=== PATIENT | female | born 1970 | race Caucasian/White ===

== ENCOUNTER → 2016-09-20 | Outpatient (CLI) | payer OTHER ==
--- NOTE | 2016-09-20 14:37 | MM ---
Reason for exam: screening (asymptomatic). Last mammogram was performed 1 year and 2 months ago. History: Patient is nulliparous. Taking hormonal contraceptives beginning at age 15. Physical Findings: A clinical breast exam by your physician is recommended on an annual basis and results should be correlated with mammographic findings. MG Screening Mammo w CAD Bilateral CC and MLO view(s) were taken. Prior study comparison: July 16, 2015, bilateral MG screening mammo w CAD. March 05, 2014, bilateral MG screening mammo w CAD. There are scattered fibroglandular densities. Asymmetric breast tissue in the right breast. This finding is changed when compared with previous exams. ASSESSMENT: Incomplete: need additional imaging evaluation, BI-RAD 0 RECOMMENDATION: Special view mammogram of the right breast. If lesion persists on supplemental views, image directed ultrasound is recommended. [facility] will attempt to contact patient to return for supplemental views and ultrasound if indicated.
== END | disposition home or self-care (01) ==
LOC: RADMAMWWP 07:26
PROVIDERS: ATTEND Family Medicine
DX: Z12.31 Encounter for screening mammogram for malignant neoplasm of breast (principal)

== ENCOUNTER → 2016-10-05 | Outpatient (CLI) | payer OTHER ==
--- NOTE | 2016-10-05 10:41 | USB ---
EXAMINATION TYPE: US breast workup limited RT DATE OF EXAM: 10/05/2016 COMPARISON: No prior ultrasound. Mammograms dated 10/05/2016 and 09/20/2016. CLINICAL HISTORY: R92.8 Abn. Mammo. Targeted right breast ultrasound was performed from the 10:00 to 1:00 positions to evaluate a mammogr aphic focal asymmetry. At the 1:00 position, 9 cm from the nipple near the palpable abnormality there is a hypoechoic 0.4 x 0.3 x 0.6 cm mass with angular margins and no discrete increased through transmission or reproducible shadowing. This is not sonographically compatible with a simple cyst and biopsy is recommended. A BB was placed over this abnormality for questionable correlation with the mammographic focal asymmetry for which the patient was originally recalled. The BB marker likely corresponds to the mammographic f ocal asymmetry. Therefore biopsy attempt under ultrasound is recommended and correlation with postcli p mammogram. If the biopsy marker does not correspond to the mammographic mass recommendations will b e given after pathology of the biopsied mass returns. If this mass is malignant, stereotactic guided biopsy would be recommended of these focal asymmetry. If this mass is benign the focal asymmetry coul d be followed up with 6 month diagnostic mammogram and considered probably benign. Incidentally noted avascular lymph node containing fat is seen at the 1:00 position, 10 cm the nipple measuring 0.4 x 0.2 x 0.3 cm. At 1:00, 8 cm from the nipple there is a hypoechoic 0.4 x 0.2 x 0.3 cm mass with probable increased t hrough transmission, however this is small and deep and likely corresponds to a cyst. This is probabl y benign and six-month follow-up ultrasound is recommended. At the 1:00 position, 4 cm nipple there is a nearly anechoic avascular mass with minimal increased th rough transmission when the focal zone is decreased, this likely corresponds to a deep cyst measuring 0.5 x 0.7 x 0.3 cm. Six-month follow-up ultrasound is recommended to ensure stability. IMPRESSION: 1. Suspicious finding. 6 mm hypoechoic mass at the 1:00 position of the right breast for which attemp t at ultrasound biopsy is recommended. The environmental engineering technician notes the possibility in difficulty reproducing this finding and therefore if ultrasound-guided biopsy is unsuccessful stereotactic guide d biopsy of the focal asymmetry would be recommended with subsequent targeted ultrasound in attempt t o delineate a clip within the sonographic mass. If successful ultrasound-guided biopsy is performed c orrelation with the focal asymmetry is recommended on the post ultrasound-guided core biopsy mammogra m for clip placement. If the 2 findings do not correlate management of the focal asymmetry will be gi kelly based on biopsy results of the 6 mm hypoechoic mass. 2. Probably benign findings at the 1:00 position within the right breast for which six-month follow-u p ultrasound is recommended.
--- NOTE | 2016-10-10 08:35 | MM ---
Reason for exam: additional evaluation requested from abnormal screening. Last mammogram was performed less than 1 month ago. History: Patient is nulliparous. Taking hormonal contraceptives beginning at age 15. Physical Findings: Nurse Summary: 1cm nodule in the right breast at 12:30 (nurse dw). MG Work Up Mamm w CAD RT LM, spot compression MLO, and spot compression CC view(s) were taken of the right breast. Prior study comparison: September 20, 2016, bilateral MG screening mammo w CAD. July 16, 2015, bilateral MG screening mammo w CAD. There are scattered fibroglandular densities. There is an 8mm mass that persists on spot compression views and true lateral view in the central upper right breast at a middle depth near the palpable BB marker. Ultrasound was subsequently performed. These results were verbally communicated with the patient and result sheet given to the patient on 10/05/16. ASSESSMENT: Incomplete: need additional imaging evaluation, BI-RAD 0 RECOMMENDATION: Ultrasound of the right breast.
== END | disposition home or self-care (01) ==
LOC: RADMAMWWP 07:03
PROVIDERS: ATTEND Family Medicine
DX: R92.8 Other abnormal and inconclusive findings on diagnostic imaging of breast (principal)
CPT/HCPCS: 76642; G0206

== ENCOUNTER → 2016-10-19 | Day surgery (SDC) | payer OTHER ==
[2016-10-19 08:29] VITALS: TEMP 98.3; BMI 34.7
--- NOTE | 2016-10-19 10:18 | USB ---
EXAMINATION TYPE: US biopsy breast VAD RT, Postbiopsy diagnostic mammo RT wo CAD DATE OF EXAM: 10/19/2016 CLINICAL HISTORY: 45-year-old female R92.8 Abnormal Mammogram. TECHNIQUE: Ultrasound guided core biopsy of the 1:00 right breast which is in the region of a nurse detected palpable abnormality. COMPARISON: 10/05/2016 and 09/20/2016 FINDINGS: The 1:00 area in question was duplicated with difficulty. There is a dense patch of fibroglandular tissue just adjacent. The procedure of ultrasound guided core biopsy was explained to the patient. Benefits, alternatives, and risks were discussed. An informed consent was then obtained. The patient was placed in supine positioning for imaging and for the procedure. The overlying skin was prepped and draped in usual sterile fashion. Lidocaine was used as anesthetic into the skin and subcutaneous tissue up to area of concern in the right breast. Under ultrasound guidance, a 13-gauge vacuum-assisted mammotome Elite biopsy gun device was used to obtain 7 core samples. Following this, a ribbon clip was left at the site of biopsy. No residual lesion could be identified after the multiple specimens. The patient tolerated the procedure well without any immediate complication. The patient was kept in the radiology department for short stay after the procedure and then discharged home in stable condition. Postbiopsy mammogram shows the microclip at the 1:00 position at a middle depth. As compared to 10/05/2016, this is at the palpable marker. However, there is an underlying focal asymmetry located in the central upper inner quadrant which was initially questioned and should be reassessed in 6 months. IMPRESSION: Successful, uncomplicated ultrasound guided core biopsy of area of concern in the 1:00 right breast which is located in the vicinity of the nurse detected palpable abnormality. Low suspicion at time of biopsy. Full pathology results to follow. RECOMMENDATIONS: 1. Follow-up pathology results. 2. Six-month follow-up diagnostic right breast mammogram for reassessment of the central upper inner quadrant focal asymmetry. If any suspicious changes are noted at that time, stereotactic core needle biopsy should be considered. Pathology Results: Benign BREAST, RIGHT, CORE BIOPSY: FIBROCYSTIC CHANGES INCLUDING FIBROSIS, CYSTS AND COLUMNAR CELL HYPERPLASIA. Recommendation Follow up mammogram of the right breast in 6 months. ADDIE
[2016-10-19 10:27] VITALS: BP 134/79; PULSE 75; RESP 15
== END ==
LOC: RADUSWWP 07:58
PROVIDERS: ATTEND Surgery
DX: N60.11 Diffuse cystic mastopathy of right breast (principal); N62 Hypertrophy of breast
CPT/HCPCS: 88305

== ENCOUNTER → 2017-05-23 | Outpatient (CLI) | payer BC ==
--- NOTE | 2017-05-23 14:45 | MM ---
Reason for exam: follow-up at short interval from prior study. Last mammogram was performed 7 months ago. History: Patient is nulliparous. Benign US biopsy breast VAD RT of the right breast, October 19, 2016. Took hormonal contraceptives beginning at age 15. Physical Findings: Nurse did not find any significant physical abnormalities on exam. MG 3D Diag Mammo W/Cad RT CC and MLO view(s) were taken of the right breast. Prior study comparison: October 19, 2016, right breast MG diagnostic mammo RT wo CAD. October 05, 2016, right breast MG work up mamm w CAD RT. The breast tissue is heterogeneously dense. This may lower the sensitivity of mammography. The previously seen focal asymmetry is stable from 10/19/16 and from 09/20/16. A 6 month follow up diagnostic exam recommended. These results were verbally communicated with the patient and result sheet given to the patient on 05/23/17. ASSESSMENT: Probably benign, BI-RAD 3 RECOMMENDATION: Follow-up diagnostic mammogram of both breasts in 6 months. Back on schedule for October 2017.
--- NOTE | 2017-05-23 14:47 | USB ---
Reason for exam: follow-up at short interval from prior study. History: Patient is nulliparous. Benign US biopsy breast VAD RT of the right breast, October 19, 2016. Took hormonal contraceptives beginning at age 15. US Breast RT Right breast ultrasound includes all four quadrants, the retroareolar region and axilla. Finding demonstrates a 0.4 x 0.4 x 0.2cm oval, vascular lesion at 1 o'clock, unchanged from prior. No sonographic finding at palpable at 12 o'clock. These results were verbally communicated with the patient and result sheet given to the patient on 05/23/17. ASSESSMENT: Probably benign, BI-RAD 3 RECOMMENDATION: Follow-up diagnostic mammogram of both breasts in 6 months. Back on schedule for October 2017. Ultrasound of the right breast in 6 months.
== END | disposition home or self-care (01) ==
LOC: RADMAMWWP 09:31
PROVIDERS: ATTEND Surgery
DX: R92.8 Other abnormal and inconclusive findings on diagnostic imaging of breast (principal)
CPT/HCPCS: 77065; 76641; G0279

== ENCOUNTER → 2017-06-23 | Outpatient (CLI) | payer BC ==
--- NOTE | 2017-06-23 15:15 | US ---
EXAMINATION TYPE: US thyroid st tissue head/neck DATE OF EXAM: 06/23/2017 COMPARISON: NONE CLINICAL HISTORY: R22.1 Localized swelling/mass/lump neck. Intermittent left neck swelling and tender ness x 1 month Left neck area of swelling: multiple small hypoechoic structures with largest measuring 1.2 x 0.8 x 1 .5cm, probable lymph nodes Right neck for comparison: appears wnl. Area of Clinical concern left neck shows oval well-circumscribed lesions measuring subcentimeter on s hort axis with retained central hyperechoic area or fatty hilum. Findings are consistent with promine nt but benign-appearing lymph nodes. IMPRESSION: As above
== END ==
LOC: RADUSWWP 14:43
PROVIDERS: ATTEND Family Medicine
DX: R22.1 Localized swelling, mass and lump, neck (principal)
CPT/HCPCS: 76536

== ENCOUNTER → 2017-10-31 | Outpatient (CLI) | payer BC ==
--- NOTE | 2017-11-01 11:32 | MM ---
Reason for exam: additional evaluation requested from prior study. Last mammogram was performed 5 months ago. History: Patient is nulliparous. Benign US biopsy breast VAD RT of the right breast, October 19, 2016. Took hormonal contraceptives beginning at age 15. Physical Findings: Nurse did not find any significant physical abnormalities on exam. MG 3D Diag Mammo W/Cad BECKA Bilateral CC and MLO view(s) were taken. Prior study comparison: May 23, 2017, right breast MG 3d diag mammo w/cad RT. October 19, 2016, right breast MG diagnostic mammo RT wo CAD. There are scattered fibroglandular densities. Previous mammotome biopsy in the right breast. Stable focal asymmetry central upper outer quadrant right breast for 1 year. These results were verbally communicated with the patient and result sheet given to the patient on 10/31/17. ASSESSMENT: Incomplete: need additional imaging evaluation, BI-RAD 0 RECOMMENDATION: Ultrasound of the right breast.
--- NOTE | 2017-11-01 11:35 | USB ---
Reason for exam: follow-up at short interval from prior study. History: Patient is nulliparous. Benign US biopsy breast VAD RT of the right breast, October 19, 2016. Took hormonal contraceptives beginning at age 15. US Breast RT Right complete breast ultrasound includes all four quadrants, the retroareolar region and axilla. Finding demonstrates a 0.3 x 0.2 x 0.2cm lesion too small to characterize at 12 o'clock, a 0.6 x 0.2 x 0.4cm mixed lesion at 1 o'clock, possibly cyst clusters, a 0.7 x 0.3 x 0.5cm mixed lesion at 6 o'clock, possibly cyst clusters and lymph nodes at axilla. As mammographic asymmetry is unchanged for 1 year an additional 1 year follow up recommended. These results were verbally communicated with the patient and result sheet given to the patient on 10/31/17. ASSESSMENT: Probably benign, BI-RAD 3 RECOMMENDATION: Follow-up diagnostic mammogram of both breasts in 1 year (total 2 year followup right breast). Ultrasound of the right breast in 1 year. ADDIE
== END | disposition home or self-care (01) ==
LOC: RADMAMWWP 08:52
PROVIDERS: ATTEND Surgery
DX: R92.8 Other abnormal and inconclusive findings on diagnostic imaging of breast (principal)
CPT/HCPCS: 77062; 77066

== ENCOUNTER → 2018-06-19 | Outpatient (CLI) | payer BC ==
--- NOTE | 2018-06-19 10:20 | CT ---
EXAMINATION TYPE: CT soft tissue neck w con DATE OF EXAM: 06/19/2018 HISTORY: Left mandibular swelling (sub mandibular) COMPARISON: NONE CT DLP: 582.5 mGycm. Automated Exposure Control for Dose Reduction was Utilized. TECHNIQUE: CT scan of the neck is performed with IV Contrast, patient injected with 100 mL of Isovue 300, axial images are obtained, coronal and sagittal reformatted images are reviewed. FINDINGS: Airway: Airway is maintained. Valleculae and piriform sinuses are unremarkable. True and false focal cords are also unremarkable. Fossa of [place] are overall symmetric. Parotid/submandibular glands: No gross abnormality seen within the parotid or submandibular glands. Submandibular lymph nodes on the left are larger than on the right although within normal limits александр uring up to 7 mm in short axis. No surrounding inflammatory changes seen of the parotid or submandibu lar glands. No ductal dilatation is noted. However there is a calculus on the left measuring 2 mm at the submandibular caruncle, the distal aspect of the submandibular duct (Ramirez's duct), on the floo r the mouth. Carotid/Vascular Structures: Incidentally noted bovine aortic arch. The common carotid arteries, visu alized internal carotid arteries, and vertebral arteries are patent without hemodynamically significa nt stenosis. Left vertebral artery is slightly dominant. Osseous Structures: Osseous structures are intact with punctate scattered sclerotic foci, likely smal l bone islands. Minimal degenerative changes of the cervical spine are seen. Straightening of usual c ervical lordosis likely relates to patient positioning. Other: Lung apices are well aerated. IMPRESSION: Left [place]'s duct sialolithiasis with 2 mm calculus at the submandibular caruncle. No proximal dila tation of the duct is seen on CT. Slightly asymmetric left submandibular adenopathy likely relates to the patient's left sided submandibular swelling along the length of the mandible. However these are not pathologically enlarged.
== END | disposition home or self-care (01) ==
LOC: RADCTMAIN 09:22
PROVIDERS: ATTEND Otolaryngology
DX: K11.5 Sialolithiasis (principal); R59.0 Localized enlarged lymph nodes
CPT/HCPCS: 70491; Q9967

== ENCOUNTER → 2018-11-27 | Outpatient (CLI) | payer BC ==
--- NOTE | 2018-11-27 12:30 | EST ---
EXERCISE STRESS DATE OF SERVICE: 11/27/2018 AGE: 47 SEX: Female HT: 64 WT: 213 PROTOCOL: Rai STAGE: III DURATION OF EXERCISE: 7 minutes 30 seconds HEART RATE REST: 102 BLOOD PRESSURE REST: 124/97 MAXIMUM HEART RATE ACHIEVED: 157 MAXIMUM BLOOD PRESSURE: 156/77 85% MPHR: 146 100% MPHR: 172 METS: 9.1 INDICATIONS: Chest pain. CLINICAL INFORMATION: Baseline rhythm is sinus mechanism, rate of 102, normal axis and intervals, poor R progression. Baseline blood pressure 124/97 mmHg. Test was terminated secondary to fatigue. Electrocardiograph monitoring revealed no evidence of diagnostic ischemic ST deviation. CONCLUSION: 1. Average exercise tolerance with normal electrocardiograph response to exercise. 2. Normal stress electrocardiogram with no evidence of arrhythmia. MMODL / IJN: [id number] /
== END ==
LOC: RADNMMAIN 10:41
PROVIDERS: ATTEND Family Medicine
DX: R07.89 Other chest pain (principal)
CPT/HCPCS: 93017

== ENCOUNTER → 2018-11-28 | Outpatient (CLI) | payer BC ==
--- NOTE | 2018-11-28 09:48 | MM ---
Reason for exam: additional evaluation requested from prior study. Last mammogram was performed 1 year and 1 month ago. History: Patient is nulliparous. Benign US biopsy breast VAD RT of the right breast, October 19, 2016. Took hormonal contraceptives beginning at age 15. Physical Findings: Nurse Summary: 0.5 x 1cm nodule in the right breast at 1 o'clock (nurse ts). MG 3D Diag Mammo W/Cad BECKA Bilateral CC and MLO view(s) were taken. Prior study comparison: October 31, 2017, bilateral MG 3d diag mammo w/cad BECKA. May 23, 2017, right breast MG 3d diag mammo w/cad RT. October 19, 2016, right breast MG diagnostic mammo RT wo CAD. September 20, 2016, bilateral MG screening mammo w CAD. July 16, 2015, bilateral MG screening mammo w CAD. There are scattered fibroglandular densities. No significant new findings when compared with previous films. These results were verbally communicated with the patient and result sheet given to the patient on 11/28/18. ASSESSMENT: Benign, BI-RAD 2 RECOMMENDATION: Routine screening mammogram of both breasts in 1 year.
--- NOTE | 2018-11-28 09:49 | USB ---
Reason for exam: additional evaluation requested from prior study. History: Patient is nulliparous. Benign US biopsy breast VAD RT of the right breast, October 19, 2016. Took hormonal contraceptives beginning at age 15. US Breast RT Right complete breast ultrasound includes all four quadrants, the retroareolar region and axilla. Finding demonstrates a 3 x 2 x 4mm oval, cystic lesion at 1 o'clock and a 3 x 3 x 3mm oval questionable lymph node at 11 o'clock. These results were verbally communicated with the patient and result sheet given to the patient on 11/28/18. ASSESSMENT: Probably benign, BI-RAD 3 RECOMMENDATION: Ultrasound of the right breast in 6 months.
== END ==
LOC: RADMAMWWP 07:37
PROVIDERS: ATTEND Surgery
DX: R92.8 Other abnormal and inconclusive findings on diagnostic imaging of breast (principal)
CPT/HCPCS: 77062; 77066

== ENCOUNTER → 2019-12-18 | Outpatient (CLI) | payer BC, MEDICAID ==
--- NOTE | 2019-12-19 11:02 | MM ---
Reason for exam: screening (asymptomatic). Last mammogram was performed 1 year and 1 month ago. History: Patient is postmenopausal and is nulliparous. Benign US biopsy breast VAD RT of the right breast, October 19, 2016. Took hormonal contraceptives beginning at age 15. Physical Findings: A clinical breast exam by your physician is recommended on an annual basis and results should be correlated with mammographic findings. MG 3D Screening Mammo W/Cad Bilateral CC and MLO view(s) were taken. Prior study comparison: November 28, 2018, bilateral MG 3d diag mammo w/cad BECKA. October 31, 2017, bilateral MG 3d diag mammo w/cad BECKA. There are scattered fibroglandular densities. Previous mammotome biopsy in the right breast. There is chronic nodularity bilaterally. No significant changes when compared with prior studies. ASSESSMENT: Benign, BI-RAD 2 RECOMMENDATION: Routine screening mammogram of both breasts in 1 year.
== END | disposition home or self-care (01) ==
LOC: RADMAMWWP 08:10
PROVIDERS: ATTEND Surgery
DX: Z12.31 Encounter for screening mammogram for malignant neoplasm of breast (principal)
CPT/HCPCS: 77063; 77067

== ENCOUNTER → 2019-12-19 | Outpatient (CLI) | payer BC, MEDICAID ==
--- NOTE | 2019-12-19 11:04 | USB ---
Reason for exam: follow-up at short interval from prior study. History: Patient is postmenopausal and is nulliparous. Benign US biopsy breast VAD RT of the right breast, October 19, 2016. Took hormonal contraceptives beginning at age 15. Physical Findings: Nurse did not find any significant physical abnormalities on exam. US Breast Limited RT Technologist: Paz Phillip Right limited breast ultrasound including focal area of concern, retroareolar and axilla demonstrates a 0.7 x 0.5 x 0.2cm oval, possible lymph node at 11 o'clock, stable from 11/2018. These results were verbally communicated with the patient and result sheet given to the patient on 12/19/19. ASSESSMENT: Benign, BI-RAD 2 RECOMMENDATION: Return to routine screening mammogram schedule for both breasts.
== END | disposition home or self-care (01) ==
LOC: RADUSWWP 07:44
PROVIDERS: ATTEND Surgery
DX: N60.09 Solitary cyst of unspecified breast (principal)

== ENCOUNTER → 2020-06-03 | Outpatient (CLI) | payer MEDICAID ==
--- NOTE | 2020-06-03 08:44 | CT ---
EXAMINATION TYPE: CT soft tissue neck w con DATE OF EXAM: 06/03/2020 COMPARISON: None HISTORY: Swollen lymph nopde on left side intermittently for 1 year. No marker placed today....landry t states, "No lumps to feel at this time." CONTRAST: CT scan of the neck is performed with IV Contrast, patient injected with 100 mL of Isovue 300. Contrast enhanced CT of the neck was performed from the skull base through the lung apices. AIRWAY: The supraglottic, glottic, and subglottic portions of the airway appear patent and free of mass. SALIVARY GLANDS: The submandibular and parotid glands are free of mass or inflammatory process. THYROID GLAND: No nodules or masses seen. LYMPH NODES: No adenopathy seen greater than 1cm. LUNG APICES: No nodule or mass is seen. OTHER: Vascular structures are patent. No significant degenerative change of the cervical spine. N o abscess seen. IMPRESSION: 1. No distinct abnormality to account for the patient's symptoms.
== END | disposition home or self-care (01) ==
LOC: RADCTMAIN 07:59
PROVIDERS: ATTEND Family Medicine
DX: R59.0 Localized enlarged lymph nodes (principal)
CPT/HCPCS: 70491; Q9967

== ENCOUNTER → 2021-02-01 | Outpatient (CLI) | payer MEDICAID ==
--- NOTE | 2021-02-02 23:27 | BD ---
EXAMINATION TYPE: Axial Bone Density DATE OF EXAM: 02/01/2021 COMPARISON: NONE CLINICAL HISTORY: Height: 5 FT 3 1/2 IN Weight: 226 FRAX RISK QUESTIONS: Alcohol (3 or more units per day): NO Family History (Parent hip fracture): NO Glucocorticoids (More than 3mos): NO (Ex: prednisone, prednisolone, methylprednisolone, dexamethasone, and hydrocortisone). History of Fracture in Adulthood: YES Secondary Osteoporosis: 1. Type 1 Diabetes: NO 2. Hyperthyroidism: NO 3. Menopause before 45: NO 4. Malnutrition: NO 5. Chronic liver disease: NO Rheumatoid Arthritis: NO Current Tobacco Use: NO RISK FACTORS HISTORY OF: Surgery to Spine/Hip(right/left)/Wrist (right/left): NO Family History of Osteoporosis: NO Active: SOMEWHAT Diet low in dairy products/other sources of calcium: NO Postmenopausal woman: YES Take estrogen and/or progesterone medications: NO Lost more than 2 inches in height since high school: NO Frequent falls: NO Poor Health: GOOD Hyperparathyroidism: NO Adrenal Insufficiency: NO MEDICATIONS: Additional Medications: BLOOD PRESSURE MEDS ,VIT D Additional History: EXAM MEASUREMENTS: Bone mineral densitometry was performed using the [employer] System. Bone mineral density as measured about the Lumbar spine is: ----- L1-L4(G/cm2): 1.154 T Score Values are as follows: ----- L2: -0.5 ----- L3: -0.6 ----- L4: 0.6 ----- L1-L4: -0.2 BASELINE Bone mineral density about the R hip (g/cm2): 0.814 Bone mineral density about the L hip (g/cm2): 0.851 T Score values are as follows: -----R Neck: -1.6 -----L Neck: -1.3 -----R Total: -1.0 -----L Total: -0.9 BASELINE IMPRESSION: Osteopenia (T Score between -2.5 and -1). There is slightly increased risk of fracture and the patient may be considered for treatment. Re-Screen 2-5 years. NOTE: T-SCORE=SD OF THE YOUNG ADULT MEAN.
== END | disposition home or self-care (01) ==
LOC: RADBDWWP 16:09
PROVIDERS: ATTEND Family Medicine
DX: M85.89 Other specified disorders of bone density and structure, multiple sites (principal); Z78.0 Asymptomatic menopausal state
CPT/HCPCS: 77080

== ENCOUNTER → 2021-02-11 | Outpatient (CLI) | payer MEDICAID ==
--- NOTE | 2021-02-12 13:53 | MM ---
Reason for exam: screening (asymptomatic). Last mammogram was performed 1 year and 2 months ago. History: Patient is postmenopausal and is nulliparous. Benign US biopsy breast VAD RT of the right breast, October 19, 2016. Took hormonal contraceptives beginning at age 15. Physical Findings: A clinical breast exam by your physician is recommended on an annual basis and results should be correlated with mammographic findings. MG 3D Screening Mammo W/Cad Bilateral CC and MLO view(s) were taken. Prior study comparison: December 18, 2019, bilateral MG 3d screening mammo w/cad. November 28, 2018, bilateral MG 3d diag mammo w/cad BECKA. There are scattered fibroglandular densities. There is no discrete abnormality. No significant changes when compared with prior studies. ASSESSMENT: Negative, BI-RAD 1 RECOMMENDATION: Routine screening mammogram of both breasts in 1 year.
== END | disposition home or self-care (01) ==
LOC: RADMAMWWP 07:21
PROVIDERS: ATTEND Family Medicine
DX: Z12.31 Encounter for screening mammogram for malignant neoplasm of breast (principal); Z78.0 Asymptomatic menopausal state
CPT/HCPCS: 77063; 77067

== ENCOUNTER 2021-03-02 08:49 | Day surgery (SDC) | payer MEDICAID ==
[2021-02-25 08:59] VITALS: BMI 38.9
[~2021-03-02 08:49] MED LIST: LACTATED RINGERS 1,000 ML IV SCH; LIDOCAINE 1% (10MG/ML) FOR IV START INTRADERMA PRN
[2021-03-02 09:38] VITALS: TEMP 98
[2021-03-02] MEDS ORDERED: ONDANSETRON 4 MG/2 ML VIAL ONE (09:50)
[2021-03-02] MEDS ORDERED: PROPOFOL 10 MG/ML 20 ML VIAL IV ONE (10:31)
[2021-03-02] MEDS ORDERED: fentaNYL (PF) 50 MCG/ML 2 ML AMP ONE (10:31)
[2021-03-02] MEDS ORDERED: MIDAZOLAM 2 MG/2 ML VIAL ONE (10:31)
--- NOTE | 2021-03-02 10:55 | P.PCN ---
Date of Procedure: 03/02/21 Procedure(s) Performed: BRIEF HISTORY: Patient is a 50-year-old pleasant white female scheduled for an elective colonoscopy as a part of screening for colorectal neoplasia. PROCEDURE PERFORMED: Colonoscopy with biopsy. PREOPERATIVE DIAGNOSIS: Screening for colon cancer. IV sedation per Anesthesia. PROCEDURE: After informed consent was obtained, the patient, was brought into the endoscopy unit. IV sedation was administered by Anesthesia under continuous monitoring. Digital rectal examination was normal. Initially the Olympus CF-160 flexible video colonoscope was then inserted in the rectum, gradually advanced into the cecum without any difficulty. Careful examination was performed as the scope was gradually being withdrawn. Ileocecal valve and the appendiceal orifice were visualized and appeared normal. Prep was excellent. Mucosa of the cecum appeared normal. In the ascending colon there was a 3 mm polyp that was removed by cold biopsy. Rest of the, ascending colon, transverse colon, descending colon, sigmoid colon, and rectum appeared normal. Retroflexion was performed in the rectum and no lesions were seen. The patient tolerated the procedure well. IMPRESSION: 3 mm ascending colon polyp status post cold biopsy Rest of the colon appeared normal RECOMMENDATIONS: Findings of this examination were discussed with the patient as well as her family. She was advised to follow with the biopsy results. If the biopsy with adenoma she can have a repeat colonoscopy in 5 years.
[2021-03-02 11:02] VITALS: RESP 16
[2021-03-02 11:30] VITALS: BP 122/83; PULSE 78
== END 2021-03-02 11:31 | disposition home or self-care (01) ==
LOC: ORWHC2ENDO 08:49
PROVIDERS: ATTEND Internal Medicine Gastroenterology
DX: Z12.11 Encounter for screening for malignant neoplasm of colon (principal); D12.2 Benign neoplasm of ascending colon
CPT/HCPCS: 45380; J2250; J2405; J3010; J2704; 88305

== ENCOUNTER → 2021-11-10 | Outpatient (CLI) | payer MEDICAID ==
--- NOTE | 2021-11-10 13:19 | CA ---
Transthoracic Echo Report Name: Helga Eduardo Age: 50 Gender: F : 1970 Exam Date: 11/10/2021 11:33 Exam Location: [place] [facility] Ht (in): 64 Wt (lb): 225 Ordering Physician: Antonio Gee MD Attending/Referring Phys: [id number], Marlen Fellmongery Worker Lucie Hill RDCS Procedure CPT: Indications: I51.7 Cardiomegaly Cardiac Hx: Technical Quality: Good Contrast 1: Total Dose (mL): Contrast 2: Total Dose (mL): MEASUREMENTS (Male / Female) Normal Values 2D ECHO LV Diastolic Diameter PLAX 3.8 cm 4.2 - 5.9 / 3.9 - 5.3 cm LV Systolic Diameter PLAX 2.6 cm IVS Diastolic Thickness 1.2 cm 0.6 - 1.0 / 0.6 - 0.9 cm LVPW Diastolic Thickness 1.0 cm 0.6 - 1.0 / 0.6 - 0.9 cm LV Relative Wall Thickness 0.6 RV Internal Dim ED PLAX 3.1 cm LA Volume 21.6 cm??? 18 - 58 / 22 - 52 cm??? M-MODE Aortic Root Diameter MM 3.4 cm LA Systolic Diameter MM 2.1 cm LA Ao Ratio MM 0.6 MV E Point Septal Separation 1.4 cm AV Cusp Separation MM 2.0 cm DOPPLER AV Peak Velocity 125.8 cm/s AV Peak Gradient 6.3 mmHg MV Area PHT 5.2 cm??? MR Peak Velocity 154.3 cm/s MR Peak Gradient 9.5 mmHg Mitral E Point Velocity 62.0 cm/s Mitral A Point Velocity 85.0 cm/s Mitral E to A Ratio 0.7 MV Deceleration Time 146.9 ms MV E' Velocity 8.9 cm/s Mitral E to MV E' Ratio 7.0 TR Peak Velocity 119.5 cm/s TR Peak Gradient 5.7 mmHg Right Ventricular Systolic Press 10.6 mmHg FINDINGS Left Ventricle Mildly increased septal wall thickness. Mildly increased posterior wall thickness. Left ventricular ejection fraction is estimated at 55-60 %. Left ventricular cavity size normal. Right Ventricle The right ventricle is normal in size and function. Right Atrium The right atrium is normal in size. Left Atrium The left atrium is normal in size. Mitral Valve Structurally normal mitral valve without significant stenosis or prolapse. There is trace mitral regurgitation. Aortic Valve Structurally normal aortic valve without significant sclerosis or stenosis. There is no aortic regurgitation. Tricuspid Valve Structurally normal tricuspid valve without significant stenosis. Pulmonary artery systolic pressure is normal. Trace tricuspid regurgitation. Pulmonic Valve Structurally normal pulmonic valve without significant stenosis. There is no pulmonic regurgitation. Pericardium Normal pericardium without effusion. Aorta Normal aortic root dimension. CONCLUSIONS Normal LV size and systolic function. No significant abnormality on the Doppler exam. No pericardial effusion Previewed by: Dr. Ev Deal MD (Electronically Signed) Final Date: 10 November 2021 13:19
== END | disposition home or self-care (01) ==
LOC: RADECHMAIN 11:23
PROVIDERS: ATTEND Family Medicine
DX: I51.7 Cardiomegaly (principal)
CPT/HCPCS: 93306

== ENCOUNTER 2022-01-23 19:44 | Emergency (ER) | payer MEDICAID ==
[2022-01-23 19:54] VITALS: PULSE 107; TEMP 98.2
[2022-01-23] MEDS ORDERED: KETOROLAC 15 MG/ML 1 ML VIAL IM STA (20:40)
[2022-01-23] MEDS ORDERED: methocarbamoL 750 MG TAB PO ONE (20:41)
--- NOTE | 2022-01-23 21:07 | CT ---
EXAMINATION TYPE: CT brain wo con DATE OF EXAM: 01/23/2022 COMPARISON: None HISTORY: fall CT DLP: 1139.4 mGycm Automated exposure control for dose reduction was used. Images obtained of the brain with no contrast. Ventricles of normal size. There is no mass effect or midline shift. No sign of intracranial hemorrha ge. IMPRESSION: Negative unenhanced head CT scan.
--- NOTE | 2022-01-23 21:08 | XR ---
EXAMINATION TYPE: XR chest 2V DATE OF EXAM: 01/23/2022 COMPARISON: 08/22/2013 HISTORY: Chest pain TECHNIQUE: FINDINGS: Heart and mediastinum are normal. Lungs are clear. Diaphragm is normal. Bony thorax is inta ct IMPRESSION: Normal chest. No change.
--- NOTE | 2022-01-23 21:34 | ED ---
General Adult HPI - General Chief complaint: Fall Stated complaint: Fall/head/abd pain Time Seen by Provider: 01/23/22 20:10 Source: patient Mode of arrival: ambulatory Limitations: no limitations - History of Present Illness Initial comments: This is a 51-year-old female with no past medical history presenting emergency department after a fall. The patient stated that she was carrying a container of water bottles when she fell forward, having a lot of [place] on the ground and she had a fall onto the package of water bottles. The patient stated that she had her abdomen and after that stood up and had pain in the bilateral back. The patient stated that she also hit the top of her head but did not lose consciousness. The patient was concerned about the bilateral back pain as well as her head pain from her fall. The patient denied any weakness, lightheadedness or dizziness. The patient did not have any difficulty breathing however did have pain with movement of her torso. The patient denied any direct trauma to the bilateral back. The patient denied any other acute pain or complaints at this time and was resting in bed comfortably. - Related Data Home Medications Medication Instructions Recorded Confirmed Cholecalciferol [Vitamin D3 (25 50 mcg PO DAILY 02/25/21 01/23/22 Mcg = 1000 Iu)] Losartan Potassium 50 mg PO DAILY 02/25/21 01/23/22 Vitamin B Complex 1 cap PO DAILY 02/25/21 01/23/22 Ascorbic Acid [Vitamin C] 500 mg PO DAILY 01/23/22 01/23/22 Zinc Gluconate [Zinc] 50 mg PO DAILY 01/23/22 01/23/22 Previous Rx's Medication Instructions Recorded Lidocaine 5% Patch [Lidoderm 5% 1 patch TOPICAL DAILY #14 patch 01/23/22 Patch] Naproxen [EC-Naproxen] 500 mg PO BID #30 tab 01/23/22 methocarbamoL [Robaxin-750] 750 mg PO TID #21 tab 01/23/22 Allergies Allergy/AdvReac Type Severity Reaction Status Date / Time No Known Allergies Allergy Verified 01/23/22 21:23 Review of Systems ROS Statement: Those systems with pertinent positive or pertinent negative responses have been documented in the HPI. ROS Other: All systems not noted in ROS Statement are negative. Past Medical History Additional Past Medical History / Comment(s): recent hives since July 2016-on zantac and zyrtec. History of Any Multi-Drug Resistant Organisms: None Reported Past Surgical History: Cholecystectomy, Tonsillectomy Past Anesthesia/Blood Transfusion Reactions: No Reported Reaction Past Psychological History: No Psychological Hx Reported Smoking Status: Never smoker Past Alcohol Use History: Occasional Past Drug Use History: None Reported General Exam Limitations: no limitations General appearance: alert, in no apparent distress Head exam: Present: normocephalic, other (Small, 1 cm area of contusion noted to the anterior frontal portion of the scalp without any abrasion or bleeding noted.) Eye exam: Present: normal appearance, PERRL Pupils: Present: normal accommodation ENT exam: Present: normal exam, normal oropharynx, mucous membranes moist Neck exam: Present: normal inspection, full ROM Respiratory exam: Present: normal lung sounds bilaterally Cardiovascular Exam: Present: regular rate, normal rhythm, normal heart sounds GI/Abdominal exam: Present: soft, normal bowel sounds Extremities exam: Present: normal inspection, full ROM Back exam: Present: tenderness (Tenderness noted to the bilateral latissimus dorsi muscles without any signs of trauma.) Neurological exam: Present: alert, oriented X3, CN II-XII intact Psychiatric exam: Present: normal affect, normal mood Skin exam: Present: warm, dry Course Vital Signs 01/23/22 01/23/22 19:51 21:58 Temperature 98.2 F Pulse Rate 107 H 107 H Respiratory 20 16 Rate Blood Pressure 195/113 154/97 O2 Sat by Pulse 99 96 Oximetry Medical Decision Making - Medical Decision Making The patient was seen and evaluated emergency department. Physical exam, the flako dewey was resting in bed without any acute distress. Vital signs admission were stable and within normal limits. The patient did have some hypertension likely secondary to pain. Due to the nature of the patient's reproducible pain on palpation, a chest x-ray was obtained and a computed tomography scan was obtained as the patient did hit her head and had a contusion noted there. Both computed tomography scan and chest x-ray were negative. The patient received Toradol as well as Robaxin in the emergency department and on reevaluation stated that her pain was significantly improved. The patient likely had a closed head injury from the fall as well as bilateral muscular skeletal strain of the back secondary to the fall as well. The patient was given a prescription for naproxen, lidocaine patches and Robaxin and told to continue take his medication as prescribed. The patient was advised to follow-up with her primary care physician for further workup and evaluations report back to the emergency department if her pain became acutely worse. The patient was agreeable to this and all of her questions were answered. The patient was discharged home in stable condition. Disposition Clinical Impression: Fall, Closed head injury, Chest wall muscle strain Disposition: HOME SELF-CARE Condition: Stable Instructions (If sedation given, give patient instructions): Muscle Strain (DC), Head Injury (DC) Prescriptions: Naproxen [EC-Naproxen] 500 mg PO BID #30 tab Lidocaine 5% Patch [Lidoderm 5% Patch] 1 patch TOPICAL DAILY #14 patch methocarbamoL [Robaxin-750] 750 mg PO TID #21 tab Is patient prescribed a controlled substance at d/c from ED?: No Referrals: Antonio Gee MD [Primary Care Provider] - 1-2 days Time of Disposition: 21:30
[2022-01-23 21:59] VITALS: BP 154/97; RESP 16
== END 2022-01-23 21:59 | disposition home or self-care (01) ==
LOC: EC 19:44
DX: S29.011A Strain of muscle and tendon of front wall of thorax, initial encounter (principal); S09.90XA Unspecified injury of head, initial encounter; Z90.49 Acquired absence of other specified parts of digestive tract; W18.30XA Fall on same level, unspecified, initial encounter
CPT/HCPCS: 71046; 70450; 99284; 96372; J1885

== ENCOUNTER → 2022-02-03 | Outpatient (CLI) | payer MEDICAID ==
--- NOTE | 2022-02-04 08:01 | CT ---
EXAMINATION TYPE: CT abdomen pelvis wo con DATE OF EXAM: 02/03/2022 HISTORY: ABD PAIN AND BLOATING. CT DLP: 1118 mGycm. Automated Exposure Control for Dose Reduction was Utilized. TECHNIQUE: CT scan of the abdomen and pelvis is performed without oral or IV contrast. COMPARISON: NONE FINDINGS: Within the limitations of a non-contrast study, the following observations are made. LUNG BASES: No significant abnormality is appreciated. LIVER/GB: Cholecystectomy clips are present. PANCREAS: No significant abnormality is seen. SPLEEN: No significant abnormality is seen. ADRENALS: No significant abnormality is seen. KIDNEYS: No renal stones or hydronephrosis is seen bilaterally. BOWEL: Normal appearing appendix from the cecum. No suspicious small or large bowel dilatation. GENITAL ORGANS: Anteverted uterus. Normal-sized ovaries. No free fluid. LYMPH NODES: No greater than 1cm abdominal or pelvic lymph nodes are appreciated. Mild fat stranding slightly prominent lymph nodes in the central mesentery. OSSEOUS STRUCTURES: No significant abnormality is seen. OTHER: No significant additional abnormality is seen. 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 No intra-abdominal ascites noted.
== END | disposition home or self-care (01) ==
LOC: RADCTMAIN 16:45
PROVIDERS: ATTEND Family Medicine
DX: R10.9 Unspecified abdominal pain (principal)
CPT/HCPCS: 74176

== ENCOUNTER → 2022-02-17 | Outpatient (CLI) | payer MEDICAID ==
--- NOTE | 2022-02-18 13:39 | MM ---
Reason for Exam: Screening (asymptomatic). Last screening mammogram was performed 12 month(s) ago. Patient History: Menarche at age 12. Patient has no children. Postmenopausal. Hormonal Contraceptives, from age 15 until age 46. 10/19/2016, Benign Core Biopsy on the right side. Risk Values: Suni 5 year model risk: 1.4%. NCI Lifetime model risk: 11.2%. Prior Study Comparison: 10/19/2016 Right Diagnostic Mammogram, [facility]. 05/23/2017 Right Diagnostic Mammogram, [facility]. 10/31/2017 Bilateral Diagnostic Mammogram, [facility]. 11/28/2018 Bilateral Diagnostic Mammogram, [facility]. 12/18/2019 Bilateral Screening Mammogram, [facility]. 02/11/2021 Bilateral Screening Mammogram, [facility]. Tissue Density: The breast tissue is heterogeneously dense. This may lower the sensitivity of mammography. Findings: Analyzed By CAD. Mammotome biopsy clip in the right breast is redemonstrated. There are small circumscribed round and oval masses bilaterally redemonstrated on background dense tissue. Benign-appearing bilateral axillary lymph nodes are again seen. There is no suspicious new group of microcalcifications or new or enlarging suspicious mass in either breast. Overall Assessment: Benign, BI-RAD 2 Management: Screening Mammogram of both breasts in 1 year. A clinical breast exam by your physician is recommended on an annual basis and results should be correlated with mammographic findings. Electronically signed and approved by: Arvin Ibrahim M.D.
== END | disposition home or self-care (01) ==
LOC: RADMAMWWP 07:11
PROVIDERS: ATTEND Family Medicine
DX: Z12.31 Encounter for screening mammogram for malignant neoplasm of breast (principal); Z78.0 Asymptomatic menopausal state; Z98.890 Other specified postprocedural states
CPT/HCPCS: 77063; 77067

== ENCOUNTER → 2023-01-24 | Outpatient (CLI) | payer MEDICAID ==
--- NOTE | 2023-01-24 17:30 | CA ---
Stress Echo Report Helga Eduardo Age: 52 Gender: F : 1970 Exam Date: 01/24/2023 10:24 Exam Location: [place] [facility] Ht (in): 64 Wt (lb): 225 Ordering Physician: Antonio Gee MD Referring Physician: [id number] Stewart Cutter Grinder Operator: Adria Li Technologist Procedure CPT: Indication: R07.89 other chest pain ICD-9 Codes: Rhythm: Patient History: Cardiac Medications: losartan, daily vitamins Medications in past 24 hours: Contrast: N/A Stress Results Protocol: Rai Total dose(mL): Exercise Duration (min:sec): 7:[address] Depression (mm): Angina Score: Saba Score: METS: 8.3 Resting HR: 96 Resting BP: 143 / 98 Peak HR: 161 Peak BP: 193 / 94 Max Predicted HR: 167 96 % Max Predicted HR Target HR: 142 Double Product: [id number] Stress Summary: BP Response: Reason for Termination: Reached target heart rate or work-load Cardiac Symptoms: Test terminated after reaching target heart rate (85% max predicted) ECG Analysis Resting ECG: Normal sinus rhythm normal axis normal intervals Stress ECG: Patient exercised on Rai protocol for 7 and half minutes achieving 85% of predicted maximal heart rate without chest pain or diagnostic ST segment depression Arrhythmia: PVCs including couplets are noted at peak exercise Echo Analysis Resting Echo: Normal left ventricular size and systolic function with an ejection fraction of 50%. There is hypokinesis involving the basal inferior wall suggestive of prior myocardial infarction. Peak Echo Analysis: There is normal hyperdynamic response of the lateral wall septum anterior wall and mid to distal inferior wall. Basal inferior wall remains hypokinetic. MEASUREMENTS (Male/Female) Normal Values CONCLUSIONS Over average exercise tolerance Negative stress test by EKG criteria Abnormal stress echo showing evidence of prior basal inferior wall myocardial infarction without any evidence of stress- induced ischemia Dr. Artem Stephenson MD (Electronically Signed) Final Date: 24 January 2023 17:29
== END | disposition home or self-care (01) ==
LOC: RADNMMAIN 09:53
PROVIDERS: ATTEND Family Medicine
DX: R94.31 Abnormal electrocardiogram [ECG] [EKG] (principal); R07.89 Other chest pain
CPT/HCPCS: 93351

== ENCOUNTER → 2023-02-22 | Outpatient (CLI) | payer MEDICAID ==
--- NOTE | 2023-02-22 10:03 | BD ---
EXAMINATION TYPE: Axial Bone Density DATE OF EXAM: 02/22/2023 CLINICAL HISTORY: 52 years old Female. ICD-10 CODE: Z12.31 screening, M85.88 Height: 5 ft 3 in Weight: 226 FRAX RISK QUESTIONS: Alcohol (3 or more units per day): no Family History (Parent hip fracture): no Glucocorticoids (More than 3mos): no (Ex: prednisone, prednisolone, methylprednisolone, dexamethasone, and hydrocortisone). History of Fracture in Adulthood: yes Secondary Osteoporosis: 1. Type 1 Diabetes: no 2. Hyperthyroidism: no 3. Menopause before 45: no 4. Malnutrition: no 5. Chronic liver disease: no Rheumatoid Arthritis: no Current Tobacco Use: no RISK FACTORS HISTORY OF: Surgery to Spine/Hip(right/left)/Wrist (right/left): no Family History of Osteoporosis: no Active: yes Diet low in dairy products/other sources of calcium: no Postmenopausal woman: yes Take estrogen and/or progesterone medications: no Lost more than 2 inches in height since high school: no Frequent falls: no Poor Health: good Hyperparathyroidism: no Adrenal Insufficiency: no MEDICATIONS: Additional Medications: losartan, baby aspirin Additional History: EXAM MEASUREMENTS: Bone mineral densitometry was performed using the [employer] System. Bone mineral density as measured about the Lumbar spine is: ----- L1-L4(G/cm2): 1.161 T Score Values are as follows: ----- L1: -0.8 ----- L2: -0.6 ----- L3: -0.5 ----- L4: 0.9 ----- L1-L4: -0.2 Z Score Values are as follows: ----- L1: -1.3 ----- L2: -1.1 ----- L3: -1.0 ----- L4: 0.4 ----- L1-L4: -0.7 Bone mineral density has: increase 0.6 % since study of: 2020 Bone mineral density about the R hip (g/cm2): 0.815 Bone mineral density about the L hip (g/cm2): 0.795 T Score values are as follows: -----R Neck: -1.6 -----L Neck: -1.8 -----R Total: -1.0 -----L Total: -1.1 Z Score values are as follows: -----R Neck: -1.4 -----L Neck: -1.6 -----R Total: -1.3 -----L Total: -1.3 Bone mineral density has: decreased -1.4 % since study of: 2020 FRAX%s: The graph provided illustrates a 10.2 % chance for a major osteoporotic fx and a 1.1 % chance for the hips probability for fx in 10 years time. IMPRESSION: Osteopenia (T Score between -2.5 and -1). There is slightly increased risk of fracture and the patient may be considered for treatment. Re-Screen 2-5 years. NOTE: T-SCORE=SD OF THE YOUNG ADULT MEAN.
--- NOTE | 2023-02-23 22:36 | MM ---
Reason for Exam: Screening (asymptomatic). Last screening mammogram was performed 12 month(s) ago. Patient History: Menarche at age 12. Patient has no children. Postmenopausal. Hormonal Contraceptives, from age 15 until age 46. 10/19/2016, Benign Core Biopsy on the right side. Risk Values: Suni 5 year model risk: 1.4%. NCI Lifetime model risk: 11.0%. Prior Study Comparison: 12/18/2019 Bilateral Screening Mammogram, [facility]. 02/11/2021 Bilateral Screening Mammogram, [facility]. 02/17/2022 Bilateral MG 3D screening mammo w/cad, [facility]. Tissue Density: There are scattered fibroglandular densities. Findings: Analyzed By CAD. Microclip right breast from prior biopsy. There is no suspicious group of microcalcifications or new suspicious mass in either breast. Overall Assessment: Negative, BI-RAD 1 Management: Screening Mammogram of both breasts in 1 year. . Patient should continue monthly self-breast exams. A clinical breast exam by your physician is recommended on an annual basis. This exam should not preclude additional follow-up of suspicious palpable abnormalities. Note on Suni scores and lifetime risk: 1. A Suni score greater than 3% is considered moderate risk. If this is the case, consider specialist referral to assess eligibility for a risk reducing agent. 2. If overall lifetime risk for the development of breast cancer is 20% or higher, the patient may qualify for future screening with alternating mammogram and breast MRI. Electronically signed and approved by: Dioni Jensen M.D. Radiologist
== END | disposition home or self-care (01) ==
LOC: RADMAMWWP 07:08
PROVIDERS: ATTEND Obstetrics & Gynecology
DX: Z12.31 Encounter for screening mammogram for malignant neoplasm of breast (principal); M85.89 Other specified disorders of bone density and structure, multiple sites; Z78.0 Asymptomatic menopausal state
CPT/HCPCS: 77063; 77067; 77080

== ENCOUNTER → 2024-01-03 | Outpatient (CLI) | payer MEDICAID ==
--- NOTE | 2024-01-03 17:43 | US ---
EXAMINATION TYPE: US thyroid st tissue head/neck DATE OF EXAM: 01/03/2024 COMPARISON: NONE CLINICAL INDICATION: Female, 53 years old with history of E04.9 GOITER; Goiter TECHNIQUE: Grayscale and color Doppler imaging of the thyroid gland. FINDINGS: GLAND SIZE: Right Lobe: 3.7 x 1.4 x 1.4 cm Overall Parenchyma: heterogeneous Left Lobe: 4.4 x 1.4 x 1.4 cm Overall Parenchyma: heterogeneous Isthmus Thickness: 0.2 cm NODULES RIGHT: # of nodules measured on right: 0 LEFT: # of nodules measured on left: 0 ISTHMUS: # of nodules measured in the isthmus: 0 Bilateral neck scanned, lymph nodes visualized bilaterally. largest = 1.3cm on the left IMPRESSION: Heterogenous thyroid gland without evidence of discrete nodule. Correlate with serum kishan ers for thyroiditis. [facility], , 01/03/2024 5:40 PM
== END | disposition home or self-care (01) ==
LOC: RADUSWWP 15:13
PROVIDERS: ATTEND Family Medicine
DX: E04.9 Nontoxic goiter, unspecified (principal)
CPT/HCPCS: 76536

== ENCOUNTER → 2024-02-26 | Outpatient (CLI) | payer MEDICAID ==
--- NOTE | 2024-02-29 08:38 | MM ---
Reason for Exam: Screening (asymptomatic). Last screening mammogram was performed 12 month(s) ago. Patient History: Menarche at age 12. Patient has no children. Postmenopausal. Hormonal Contraceptives, from age 15 until age 46. 10/19/2016, Benign Core Biopsy on the right side. Risk Values: Suni 5 year model risk: 1.5%. NCI Lifetime model risk: 10.8%. Prior Study Comparison: 02/11/2021 Bilateral Screening Mammogram, [facility]. 02/17/2022 Bilateral MG 3D screening mammo w/cad, [facility]. 02/22/2023 Bilateral MG 3D screening mammo w/cad, [facility]. Tissue Density: There are scattered areas of fibroglandular density. Findings: Analyzed By CAD. Microclip right breast from prior biopsy. There is no suspicious group of microcalcifications or new suspicious mass in either breast. Overall Assessment: Negative, BI-RAD 1 Management: Screening Mammogram of both breasts in 1 year. Patient should continue monthly self-breast exams. A clinical breast exam by your physician is recommended on an annual basis. This exam should not preclude additional follow-up of suspicious palpable abnormalities. Note on Suni scores and lifetime risk: 1. A Suni score greater than 3% is considered moderate risk. If this is the case, consider specialist referral to assess eligibility for a risk reducing agent. 2. If overall lifetime risk for the development of breast cancer is 20% or higher, the patient may qualify for future screening with alternating mammogram and breast MRI. [facility], , 02/29/2024 8:32 AM. Electronically signed and approved by: Dioni Jensen M.D. Radiologist
== END | disposition home or self-care (01) ==
LOC: RADMAMWWP 10:57
PROVIDERS: ATTEND Family Medicine
DX: Z12.31 Encounter for screening mammogram for malignant neoplasm of breast (principal); Z78.0 Asymptomatic menopausal state; R92.323 Mammographic fibroglandular density, bilateral breasts; Z98.82 Breast implant status
CPT/HCPCS: 77063; 77067